=== PATIENT | female | born 1955 | race Caucasian/White ===

== ENCOUNTER 2016-11-29 12:32 | Emergency (ER) | payer BC, OTHER ==
[2016-11-29 12:37] VITALS: BP 137/96; PULSE 113; TEMP 97.4; BMI 24.2
[2016-11-29] MEDS ORDERED: KETOROLAC TROMETHAMINE 60 MG/2 ML VIAL IM ONE (13:26)
--- NOTE | 2016-11-29 13:31 | PDOC ---
History of Present Illness - General Chief Complaint: Pain Stated Complaint: SHOULDER PAIN Time Seen by Provider: 11/29/16 13:01 History Source: Patient Exam Limitations: No Limitations - History of Present Illness Initial Comments: 11/29/16 13:28 61 yr female with c/o left shoulder pain after using yesterday placing many cans in the recycling bin. Pt states her shoulder is painful with motion reaching behind and in her pocket. Pt denies numbness or tingling. Occurred: reports: yesterday Severity: reports: moderate Pain Location: reports: upper extremity (left shoulder ) Past History - Past Medical History Allergies/Adverse Reactions: Allergies Allergy/AdvReac Type Severity Reaction Status Date / Time Sulfa (Sulfonamide Allergy Severe ANAPHYLACTI Verified 11/29/16 12:37 Antibiotics) C acetaminophen [From Tylenol] Allergy Verified 11/29/16 12:37 shellfish derived Allergy Verified 11/29/16 12:37 Home Medications: Ambulatory Orders Ascorbate Calcium [Vitamin C] 500 mg PO TID 07/02/15 Aspirin [Aspirin EC] 81 mg PO BID 07/02/15 Calcium Carbonate/Vitamin D3 [Calcium + Vitamin D Tablet] 1 each PO DAILY Cholecalciferol (Vitamin D3) [Vitamin D] 5,000 unit PO DAILY 07/02/15 Diltiazem Cd [Cardizem Cd -] 240 mg PO DAILY 07/02/15 Ferrous Sulfate [Slow Release Iron] 45 mg PO TID 07/02/15 Naproxen Sodium [Aleve] 220 mg PO BID 07/02/15 Omeprazole [Prilosec] 20 mg PO ASDIR 07/02/15 Oxycodone HCl 5 mg PO PRN PRN 07/02/15 Pramipexole Di-HCl [Mirapex] 1 mg PO BID 07/02/15 Prednisone [Deltasone -] 2.5 mg PO BID 07/02/15 Tofacitinib Citrate [Xeljanz] 5 mg PO BID 07/02/15 Turmeric Root Extract [Turmeric] 500 mg PO DAILY 07/02/15 Anemia: Yes Asthma: No Cancer: No Cardiac Disorders: Yes (AORTIC STENOSIS,HEART MURMUR) CVA: No COPD: No CHF: No Dementia: No Diabetes: No GI Disorders: No Disorders: No HTN: Yes Hypercholesterolemia: No Liver Disease: No Seizures: No Thyroid Disease: No - Surgical History Abdominal Surgery: Yes (HERNIA) Cardiac Surgery: Yes (VALVE REPLACEMENT.) Orthopedic Surgery: Yes (TOTAL HIP TEENA,TOTAL KNEE TEENA,ANKLY FUSION TEENA) - Psycho/Social/Smoking Cessation Hx Suicidal Ideation: No Smoking History: Never smoked Have you smoked in the past 12 months: No Hx Alcohol Use: No Drug/Substance Use Hx: No Substance Use Type: None Hx Substance Use Treatment: No Trauma Specific PMHX - Complaint Specific PMHX Arthritis: Yes Other History: history of torn left rotator cuff and right Review of Systems - Review of Systems Able to Perform ROS?: Yes Is the patient limited Divehi proficient: No Constitutional: No: Symptoms Reported HEENTM: No: Symptoms Reported Respiratory: No: Symptoms reported Cardiac (ROS): No: Symptoms Reported ABD/GI: No: Symptoms Reported : No: Symptoms Reported Musculoskeletal: Yes: See HPI Integumentary: No: Symptoms Reported *Physical Exam - Vital Signs Last Vital Signs Temp Pulse Resp BP Pulse Ox 97.4 F L 113 H 20 137/96 96 11/29/16 12:34 11/29/16 12:34 11/29/16 12:34 11/29/16 12:34 11/29/16 12:34 - Physical Exam General Appearance: Yes: Nourished, Appropriately Dressed HEENT: positive: EOMI, MIRA Respiratory/Chest: positive: Lungs Clear, Normal Breath Sounds Cardiovascular: positive: Regular Rhythm, Regular Rate Extremity: positive: Normal Capillary Refill, Normal Inspection, Normal Range of Motion, Other (from left shoulder no bony tenderness). negative: Tender, Swelling, Inflammation Integumentary: positive: Normal Color, Dry, Warm Neurologic: positive: Fully Oriented, Alert, Normal Mood/Affect, Normal Response , Motor Strength 5/5 ED Treatment Course - RADIOLOGY Radiology Studies Ordered: Category Date Time Status SHOULDER-LEFT [RAD] Stat Radiology 11/29/16 13:12 Ordered Medical Decision Making - Medical Decision Making 11/29/16 13:30 cc: left shoulder pain after overuse yesterday putting many cans in recycling bin reaching into bags and pulling out the cans pt states she had apin during the night placed ice to the area 11/29/16 14:04 sling placed to left arm *DC/Admit/Observation/Transfer Diagnosis at time of Disposition: Left shoulder strain Qualifiers: Encounter type: initial encounter Qualified Code(s): S46.912A - Strain of unspecified muscle, fascia and tendon at shoulder and upper arm level, left arm , initial encounter - Discharge Dispostion Disposition: HOME Condition at time of disposition: Good - Referrals Referrals: Armani Perez MD [Primary Care Provider] - Rufino Castillo MD [Staff Physician] - - Patient Instructions Additional Instructions: follow with the orthopedist this week keep arm in sling while awake remove to sleep and bathe apply ice every 2hrs for 20 minutes to the affected area while awake for the next 2 days take your anti inflamatory medicine as you usually do , the sling and ice is the best treatment for the acute pain right now with the anti inflamatory
[2016-11-29] MEDS ORDERED: KETOROLAC TROMETHAMINE 60 MG/2 ML VIAL ONE (13:35)
== END 2016-11-29 14:26 | disposition home or self-care (01) ==
LOC: JERFT 12:32
PROC: 3E0233Z Introduction of Anti-inflammatory into Muscle, Percutaneous Approach (ICD-10-PCS; principal; 2016-11-29)
DX: M25.512 Pain in left shoulder (principal); X50.3XXA Overexertion from repetitive movements, initial encounter; Y93.89 Activity, other specified; Y92.89 Other specified places as the place of occurrence of the external cause; I10 Essential (primary) hypertension; I35.0 Nonrheumatic aortic (valve) stenosis
CPT/HCPCS: 73030-TC-LT; 99281-25